=== PATIENT | female | born 1995 | race Caucasian/White ===

== ENCOUNTER 2023-03-31 09:06 | Emergency (ER) | payer BC, SELFPAY ==
--- NOTE | ~2023-03-31 | CT_ITS ---
EXAMINATION: CT thoracic lumbar wo con DATE: 03/31/2023 11:08 INDICATION: Fall. Back pain. TECHNIQUE: Computed tomography (CT) of the thoracic and lumbar spine was performed without intravenou s contrast. Automated exposure control and iterative reconstruction technique were employed. Exam dos e: 1297.20 mGy-cm total exam DLP. COMPARISON: None FINDINGS: No fracture or dislocation of the thoracic or lumbar spine. Slight degenerative spurring of the thoracic spine.. IMPRESSION: No fracture or dislocation of the thoracic and lumbar spine Reviewed, dictated and finalized at [facility]. Reviewed, dictated and finalized at [facility].
--- NOTE | ~2023-03-31 | CT_ITS ---
EXAMINATION: CT cervical spine wo con DATE: 03/31/2023 11:08 INDICATION: Fall. Neck and back pain. TECHNIQUE: Computed tomography (CT) of the cervical spine was performed without intravenous contrast. Automated exposure control and iterative reconstruction technique were employed. Exam dose: 319.27 mGy-cm total exam DLP. COMPARISON: None FINDINGS: There is reversal of cervical curvature which may be due to positioning or muscle spasm. Normal atlantoaxial occipital articulation. C1 and C2 are normally aligned and the odontoid process i s intact. No fracture or dislocation, locked facet or prevertebral soft tissue swelling. Cervical interspaces a re preserved.. IMPRESSION: Reversal of cervical curvature which may be due to muscle spasm or positioning No fracture or dislocation or locked facet Reviewed, dictated and finalized at [facility]. Reviewed, dictated and finalized at [facility].
--- NOTE | ~2023-03-31 | CT_ITS ---
EXAMINATION: CT brain wo con DATE: 03/31/2023 11:08 INDICATION: Fall. Head injury. Neck pain, back pain. TECHNIQUE: Computed tomography (CT) of the head was performed without intravenous contrast. The mA wa s adjusted according to patient size. Iterative reconstruction technique was employed. Exam dose: 60 5.33 mGy-cm total exam DLP. COMPARISON: None FINDINGS: No intracranial abnormality is detected. No intracranial mass lesion or hemorrhage, midline shift or mass effect. Normal ventricular size. Normal ash-white matter differentiation. No subdural or epidural hematoma. The orbits appear normal. Included paranasal sinuses and mastoid air cells are normally developed and aerated. No skull fracture or bone destruction. IMPRESSION: Negative Reviewed, dictated and finalized at [facility]. Reviewed, dictated and finalized at [facility]. IMPRESSION: Negative
[2023-03-31 09:13] VITALS: BP 115/86; PULSE 70; RESP 16; TEMP 37.1; O2SAT 100
--- NOTE | 2023-03-31 09:31 | ED.HEATRA ---
HPI - Head Injury General Chief complaint: Head Injury Stated complaint: FALL, HEAD INJURY Time Seen by Provider: 03/31/23 09:20 History of Present Illness HPI Narrative: 27-year-old female presents to the emergency room today for complaints of headache, neck pain and back pain. She fell down her steps this morning around 2 AM. She says that she hit her head pretty hard. She had significant headache initially and applied ice and took [id number] pain reliever. This did help with pain somewhat but she still has a headache. She says that she feels a little dizzy. She says that she feels a little confused since the fall as well. No numbness or tingling to her extremities no extremity weakness. No speech difficulty. Related Data Allergies Allergy/AdvReac Type Severity Reaction Status Date / Time iodine Allergy Rash Verified 03/31/23 09:09 nut - unspecified Allergy Anaphylaxis Verified 03/31/23 09:09 tree nut Allergy Anaphylaxis Verified 03/31/23 09:09 Review of Systems Review of Systems: CONSTITUTIONAL: Denies fever, chills, or sweats. EYES: Denies visual changes, redness, or discharge. ENT: Denies rhinorrhea, congestion, sore throat, or otalgia. CARDIOVASCULAR: Denies chest pain, palpitations, or edema. RESPIRATORY: Denies cough or dyspnea. GASTROINTESTINAL: Denies abdominal pain, nausea, vomiting, or diarrhea. GENITOURINARY: Denies dysuria or hematuria. SKIN: Denies rash or itching. MUSCULOSKELETAL: As per HPI, no injury to extremities. NEUROLOGIC: As per HPI PSYCHIATRIC: Denies anxiety or depression. Course Vital Signs Vital signs: Vital Signs Temperature 37.1 C 03/31/23 09:13 Pulse Rate 70 03/31/23 09:13 Respiratory Rate 16 03/31/23 09:13 Blood Pressure 115/86 03/31/23 09:13 Pulse Oximetry 100 03/31/23 09:13 Oxygen Delivery Room Air 03/31/23 09:13 Temperature 37.1 C 03/31/23 09:13 Pulse Rate 70 03/31/23 09:13 Respiratory Rate 16 03/31/23 09:13 Blood Pressure 115/86 03/31/23 09:13 Pulse Oximetry 99 03/31/23 09:54 Oxygen Delivery Room Air 03/31/23 09:54 MDM - Head Injury MDM Narrative Medical decision making narrative: Imaging negative for acute findings. Pt remains alert and oriented, no worsening symptoms. Will discharge to home. Advised follow up with primary care later this week. Lab Data Labs: UCG Bedside Result Negative Reference Range: Negative Imaging Data Radiologist's impression: EXAMINATION: CT thoracic lumbar wo con DATE: 03/31/2023 11:08 INDICATION: Fall. Back pain. TECHNIQUE: Computed tomography (CT) of the thoracic and lumbar spine was performed without intravenous contrast. Automated exposure control and iterative reconstruction technique were employed. Exam dose:? 1297.20 mGy-cm total exam DLP.? COMPARISON: None FINDINGS: No fracture or dislocation of the thoracic or lumbar spine. Slight degenerative spurring of the thoracic spine.. IMPRESSION:? No fracture or dislocation of the thoracic and lumbar spine EXAMINATION: CT cervical spine wo con DATE: 03/31/2023 11:08 INDICATION: Fall. Neck and back pain. TECHNIQUE: Computed tomography (CT) of the cervical spine was performed without intravenous contrast. Automated exposure control and iterative reconstruction technique were employed. Exam dose:? 319.27 mGy-cm total exam DLP.? COMPARISON: None FINDINGS: There is reversal of cervical curvature which may be due to positioning or muscle spasm. Normal atlantoaxial occipital articulation. C1 and C2 are normally aligned and the odontoid process is intact. No fracture or dislocation, locked facet or prevertebral soft tissue swelling. Cervical interspaces are preserved.. IMPRESSION:? Reversal of cervical curvature which may be due to muscle spasm or positioning No fracture or dislocation or locked facet Reviewed, dictated and finalized at [facility].
[2023-03-31 09:54] VITALS: O2SAT 99
[2023-03-31] MEDS: CYCLOBENZAPRINE HCL 10 MG TABLET PO (10:23)
[2023-03-31 12:30] VITALS: BP 116/83; PULSE 78; RESP 18; O2SAT 100
== END 2023-03-31 12:34 | disposition home or self-care (01) ==
PROVIDERS: Emergency Provider Emergency Medicine
DX: S06.0X0A Concussion without loss of consciousness, initial encounter (principal); S39.92XA Unspecified injury of lower back, initial encounter; S29.9XXA Unspecified injury of thorax, initial encounter; W10.9XXA Fall (on) (from) unspecified stairs and steps, initial encounter
CPT/HCPCS: 70450; 72125; 72128; 72131; 81025; 99284; A9270